=== PATIENT | female | born 1985 | race Two or more races ===

== ENCOUNTER 2019-09-17 10:23 | Emergency (ER) | payer SELFPAY ==
[~2019-09-17] VITALS: Ht 152.4 cm; Wt 58.0 kg
[2019-09-17 10:25] VITALS: BP 149/77
[2019-09-17 11:39] LABS: ALANINE AMINOTRANSFERASE 23 U/L (12-78); ALBUMIN 3.9 G/DL (3.4-5.0); ALBUMIN/GLOBULIN RATIO 1.1 (1.1-1.5); ALKALINE PHOSPHATASE 73 IU/L (46-116); ANION GAP 5 (8-16); ASPARTATE AMINO TRANSFERASE 19 U/L (10-37); BILIRUBIN,TOTAL 0.3 MG/DL (0.1-1.0); BLOOD UREA NITROGEN 9 MG/DL (7-18); BUN/CREATININE RATIO 13.8 (6.6-38.0); CALCIUM 8.7 MG/DL (8.5-10.1); CHLORIDE 107 MMOL/L (99-107); CREATININE 0.65 MG/DL (0.40-0.90); GLUCOSE 77 MG/DL (70-104); POTASSIUM 3.8 MMOL/L (3.5-5.1); SODIUM 142 MMOL/L (135-145); TOTAL CARBON DIOXIDE 29.6 MMOL/L (24-32); TOTAL PROTEIN 7.4 G/DL (6.4-8.2); eGFR > 90 ML/MIN
[2019-09-17 11:40] LABS: EOSINOPHILS # (AUTO) 0.1 X10'3 (0-0.9); EOSINOPHILS % (AUTO) 1.6 % (0-6); HEMATOCRIT 39.7 % (35.0-45.0)
[2019-09-17 11:42] LABS: BASOPHILS % (AUTO) 0.8 % (0-1); HEMOGLOBIN 13.4 g/dl (12.0-16.0); LYMPHOCYTES # (AUTO) 1.3 X10'3 (1.1-4.8); LYMPHOCYTES % (AUTO) 26.9 % (21-51); MEAN CORPUSCULAR HGB CONC 33.7 g/dL (33.0-36.5); MEAN PLATELET VOLUME 10.4 FL (7.4-10.4); MONOCYTES # (AUTO) 0.3 X10'3 (0-0.9); MONOCYTES % (AUTO) 6.5 % (2-12); NEUTROPHILS # (AUTO) 3.2 X10'3 (1.8-7.7); NEUTROPHILS % (AUTO) 64.2 % (42-75); PLATELET COUNT 196 X10'3 (140-440); RED BLOOD COUNT 4.32 X10'6 (4.20-5.60); RED CELL DISTRIBUTION WIDTH 12.8 % (11.5-14.5)
--- NOTE | 2019-09-17 11:49 | NUR ---
ULTRASOUND AT BEDSIDE
[2019-09-17 12:32] LABS: CLARITY,URINE CLEAR (Clear); COLOR,URINE YELLOW (Yellow); GLUCOSE, URINE NEGATIVE (Neg); KETONES,URINE NEGATIVE (Neg); LEUKOCYTE ESTERASE ,URINE SMALL (Neg); NITRITES, URINE NEGATIVE (Neg); OCCULT BLOOD,URINE LARGE (Neg); PROTEIN,URINE NEGATIVE (Neg); UROBILINOGEN,URINE 0.2 E.U/dL (0.2-1.0)
[2019-09-17 12:33] LABS: UA COLLECTION TYPE CLN CATCH MIDSTREAM
[2019-09-17 12:37] LABS: URINE AMPHETAMINE SCREEN NEGATIVE (Neg); URINE BARBITUATE SCREEN NEGATIVE (Neg); URINE BENZODIAZEPINES SCREEN NEGATIVE (Neg); URINE CANNABINOID SCREEN POSITIVE (Neg); URINE COCAINE SCREEN NEGATIVE (Neg); URINE METHADONE SCREEN NEGATIVE (Neg); URINE OPIATE SCREEN NEGATIVE (Neg); URINE PHENCYCLIDINE SCREEN NEGATIVE (Neg)
[2019-09-17 12:41] LABS: SQUAMOUS EPITHELIAL CELL,UR FEW /LPF (FEW)
[2019-09-17 12:42] LABS: BACTERIA,URINE 1+ /HPF (Neg)
== END 2019-09-17 12:59 | disposition home or self-care (01) ==
LOC: ER 10:24
DX: O46.91 Antepartum hemorrhage, unspecified, first trimester (principal); F12.90 Cannabis use, unspecified, uncomplicated; Z3A.01 Less than 8 weeks gestation of pregnancy
CPT/HCPCS: 36415; 76801; 80053; 80305; 81001; 84702; 85025; 86900; 86901; 87088; 99284

== ENCOUNTER 2019-09-19 08:16 | Emergency (ER) | payer SELFPAY ==
[~2019-09-19] VITALS: Ht 152.4 cm; Wt 57.0 kg
[2019-09-19 09:15] VITALS: BP 125/38
== END 2019-09-19 10:04 | disposition home or self-care (01) ==
LOC: ER 08:16
DX: O20.0 Threatened abortion (principal); O99.321 Drug use complicating pregnancy, first trimester; F12.90 Cannabis use, unspecified, uncomplicated; Z3A.01 Less than 8 weeks gestation of pregnancy
CPT/HCPCS: 36415; 84702; 99283

== ENCOUNTER 2020-04-24 09:35 | Emergency (ER) | payer BC ==
[~2020-04-24] VITALS: Ht 152.4 cm; Wt 50.0 kg
[2020-04-24] MEDS ORDERED: acetaminophen 325mg tablet PO ONE (10:45)
[2020-04-24 11:39] LABS: HCG SERUM QL POSITIVE
--- NOTE | 2020-04-24 11:44 | NUR ---
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
[2020-04-24 12:43] LABS: CLARITY,URINE SLIGHTLY CLOUDY (Clear); COLOR,URINE YELLOW (Yellow); GLUCOSE, URINE NEGATIVE (Neg); KETONES,URINE NEGATIVE (Neg); LEUKOCYTE ESTERASE ,URINE NEGATIVE (Neg); NITRITES, URINE NEGATIVE (Neg); OCCULT BLOOD,URINE MODERATE (Neg); PH,URINE 7.5 (4.8-8.0); PROTEIN,URINE NEGATIVE (Neg); UROBILINOGEN,URINE 0.2 E.U/dL (0.2-1.0)
[2020-04-24 12:44] VITALS: BP 127/76
[2020-04-24 12:54] LABS: UA COLLECTION TYPE CLN CATCH MIDSTREAM
[2020-04-24 13:02] LABS: SQUAMOUS EPITHELIAL CELL,UR FEW /LPF (FEW)
[2020-04-24 13:03] LABS: BACTERIA,URINE FEW /HPF (Neg)
[2020-04-24 13:04] LABS: WBC,URINE 0-4 /HPF (0-4)
== END 2020-04-24 12:46 | disposition home or self-care (01) ==
LOC: ER 09:36
DX: O03.4 Incomplete spontaneous abortion without complication (principal); F12.90 Cannabis use, unspecified, uncomplicated
CPT/HCPCS: 36415; 76802; 81001; 84702; 84703; 93976; 99284

== ENCOUNTER 2021-06-14 14:43 | Emergency (ER) | payer BC, OTHER ==
[~2021-06-14] VITALS: Ht 154.9 cm; Wt 52.3 kg
[2021-06-14 15:16] VITALS: BP 147/97
[2021-06-14] MEDS ORDERED: BACI30OI9 TOP (15:21)
== END 2021-06-14 15:26 | disposition home or self-care (01) ==
LOC: ER 14:44
DX: T23.002A Burn of unspecified degree of left hand, unspecified site, initial encounter (principal); T79.9XXA Unspecified early complication of trauma, initial encounter; F12.10 Cannabis abuse, uncomplicated; X77 Intentional self-harm by steam, hot vapors and hot objects; Y93.89 Activity, other specified; Y92.89 Other specified places as the place of occurrence of the external cause; Y99.8 Other external cause status
CPT/HCPCS: 99282

== ENCOUNTER 2024-08-04 07:57 | Emergency (ER) | payer BC ==
[~2024-08-04] VITALS: Ht 154.9 cm; Wt 58.0 kg
[~2024-08-04 07:57] MED LIST: BACI30OI9 TOP
[2024-08-04 09:41] LABS: BASOPHILS % (AUTO) 0.6 % (0-1); EOSINOPHILS # (AUTO) 0.1 X10'3 (0-0.9); EOSINOPHILS % (AUTO) 1.3 % (0-6); HEMATOCRIT 41.7 % (35.0-45.0); LYMPHOCYTES # (AUTO) 1.6 X10'3 (1.1-4.8); LYMPHOCYTES % (AUTO) 27.3 % (21-51); MEAN CORPUSCULAR HEMOGLOBIN 31.1 PG (27.0-31.0); MEAN CORPUSCULAR HGB CONC 33.7 g/dL (33.0-36.5); MEAN CORPUSCULAR VOLUME 92.3 FL (78-98); MEAN PLATELET VOLUME 9.3 FL (7.4-10.4); MONOCYTES # (AUTO) 0.3 X10'3 (0-0.9); MONOCYTES % (AUTO) 5.8 % (2-12); NEUTROPHILS # (AUTO) 3.8 X10'3 (1.8-7.7); PLATELET COUNT 246 X10'3 (140-440); RED BLOOD COUNT 4.52 X10'6 (4.20-5.60); RED CELL DISTRIBUTION WIDTH 13.5 % (11.5-14.5); WHITE BLOOD COUNT 5.9 X10'3 (4.5-11.0)
[2024-08-04] MEDS: ketorolac trometh 30MG/ML vial 30 MG/ML VIAL IM ONE (10:27)
[2024-08-04 10:35] VITALS: BP 145/78; PULSE 68; RESP 16; TEMP 98.4; O2SAT 99
== END 2024-08-04 10:38 | disposition home or self-care (01) ==
LOC: ER 07:57
DX: O03.9 Complete or unspecified spontaneous abortion without complication (principal); F12.90 Cannabis use, unspecified, uncomplicated; R10.2 Pelvic and perineal pain
CPT/HCPCS: 36415; 76801; 84702; 85025; 86900; 86901; 96372; 99285; J1885

== ENCOUNTER 2025-07-11 14:44 | Emergency (ER) | payer BC ==
[~2025-07-11] VITALS: Ht 152.4 cm; Wt 58.3 kg
[2025-07-11 14:46] VITALS: BP 153/105; PULSE 86; O2SAT 98
--- NOTE | 2025-07-11 15:01 | Physician Documentation ---
History of Present Illness ~ Chief Complaint: Headache Stated Complaint: HEADACHE Time Seen by MD: 15:00 Primary Medical Doctor: N/A HPI Patient is a very pleasant 39-year-old female that presents to the emergency department for evaluation of significant headache for 24 hours. Patient reports she has a history of migraines. Patient reports he does not recall them being this severe in the past. Patient reports she does not have any visual changes at this time no nausea and vomiting but reports significant left-sided headache that has not responded to Tylenol ibuprofen or rest. Patient denies numbness or tingling visual changes nausea vomiting or any other symptoms at this time. Medication Reconciliation Allergies: Coded Allergies: No Known Allergies (Unverified , 07/11/25) Scheduled Bacitracin Zinc (Antibiotic), 1 APPLIC TOP Q4H Past Medical History Past Medical History: No Pertinent History Past Surgical History: no surgical history Other Past Family History: non-contributory Alcohol Use: Rarely Drug Use: marijuana Review of Systems ROS As stated above in the HPI, otherwise all systems are reviewed and negative. Physical Exam Vital Signs: Temperature: 98.9, Source: Temporal, Heart Rate: 86, Respiratory Rate: 16, BP: 153/105, Pulse Oximetry: 98, Weight: 58.300 Oxygen Flow Rate: 0 Physical Exam VITALS: Reviewed and as above. GENERAL: Alert, mild distress present as patient reports significant headache. HEENT: Normocephalic, atraumatic, PERRL, EOMI, dry mucosa, no erythema RESPIRATORY: normal breath sounds, no respiratory distress. CHEST: No accessory muscle use, no retractions CV: Regular rate, rhythm, no edema, no murmur MUSCULOSKELETAL No deformities, no edema, no neck pain with flexion SKIN: Warm and dry, no rash NEURO: Oriented x4, No motor or sensory deficit PSYCH: Normal mood and affect, no agitation Progress Results/Orders Results/Orders Orders - SUNI GAVIRIAP Ct Head (07/11/25 17:45) * Iv Access / Saline Lock * (07/11/25 18:38) Acetaminophen 1,000mg/100ml Iv (Ofirmev (07/11/25 20:00) Completed Orders - SUNI GAVIRIA [employer] Cbc/Diff (07/11/25 17:38) CMP (07/11/25 17:38) Ct Head (07/11/25 17:45) Ketorolac Trometh 15mg/Ml Vial (Toradol (07/11/25 18:40) Diphenhydramine Inj (Benadryl Inj.) (07/11/25 18:40) Vital Signs 07/11/25 14:46 Temp 98.9 Pulse 86 Resp 16 B/P (MAP) 153/105 Pulse Ox 98 O2 Flow Rate 0 Laboratory Tests Test 07/11/25 18:03 White Blood Count 6.2 Red Blood Count 4.77 Hemoglobin 14.5 Hematocrit 42.8 Mean Corpuscular Volume 89.8 Mean Corpuscular Hemoglobin 30.3 Mean Corpuscular Hemoglobin Concent 33.8 Red Cell Distribution Width 13.1 Platelet Count 238 Mean Platelet Volume 9.0 Neutrophils (%) (Auto) 68.8 Lymphocytes (%) (Auto) 24.4 Monocytes (%) (Auto) 5.5 Eosinophils (%) (Auto) 0.4 Basophils (%) (Auto) 0.9 Neutrophils # (Auto) 4.3 Lymphocytes # (Auto) 1.5 Monocytes # (Auto) 0.3 Eosinophils # (Auto) 0.0 Basophils # (Auto) 0.1 CBC Comment Sodium Level 139 Potassium Level 3.7 Chloride Level 105 Carbon Dioxide Level 24.1 Anion Gap 10 Blood Urea Nitrogen 13 Creatinine 0.71 Estimated GFR/1.73 m2 > 90 BUN/Creatinine Ratio 18.3 Glucose Level 77 Calcium Level 9.0 Total Bilirubin 0.6 Aspartate Amino Transf (AST/SGOT) 19 Alanine Aminotransferase (ALT/SGPT) 17 Alkaline Phosphatase 79 Total Protein 8.0 Albumin 4.1 Globulin 3.9 Albumin/Globulin Ratio 1.1 Chemistry Comments Medical Decision Making Additional information obtaine: other Findings Chief Complaint: Severe headache lasting 24 hours History of Present Illness: 39-year-old female with history of migraines presented to the emergency department with a significant left-sided headache lasting 24 hours. Patient reports this headache is more severe than her typical migraines. She denies visual changes, nausea, vomiting, numbness, tingling, or other neurological symptoms. [id number] acetaminophen and ibuprofen provided no relief. Emergency Department Course: Diagnostic Evaluation: Given the patient's presentation with a more severe headache than usual, appropriate diagnostic workup was performed to exclude secondary headache disorders. Laboratory diagnostics and non-contrast CT of the head were obtained and demonstrated no abnormalities or concerning findings. This evaluation was appropriate given the change in headache pattern from her baseline migraines. Treatment: Patient received evidence-based acute migraine therapy in the ED including: Intravenous normal saline 1 liter for hydration Intravenous ketorolac (NSAID therapy, which should be offered for acute migraine in the ED) Intravenous acetaminophen Intravenous diphenhydramine (for potential sedation and antihistamine effects) Patient demonstrated good improvement in headache severity following this treatment regimen. Medical Decision-Making: Differential Diagnosis: The differential diagnosis for this patient presenting with severe headache included: Acute migraine headache (most likely given history of migraines, unilateral location, [id number] intensity, and response to migraine-specific therapy) Meningitis - Considered but currently no signs of meningitis. Patient lacks fever, nuchal rigidity, altered mental status, or other meningeal signs. Normal laboratory values and absence of systemic signs of infection make bacterial meningitis unlikely. Subarachnoid hemorrhage - Considered given severity of headache, though patient denies thunderclap onset (maximal intensity within [address] head effectively excludes this diagnosis when obtained acutely. Intracranial mass lesion or brain abscess - Excluded by normal CT imaging without mass effect, edema, or abnormal enhancement Tension-type headache - Less likely given unilateral location and severity, though can coexist with migraine Assessment: Acute migraine headache, more severe than patient's typical migraine pattern, with reassuring diagnostic workup excluding secondary causes including meningitis. Differential Dx:Considerations: Include: HERNANDEZ-Cluster, HERNANDEZ-Migraine, HERNANDEZ- Hypertensive, HERNANDEZ-Muscular contraction, HERNANDEZ-Post lumbar puncture, Carbon monoxide toxicity, Close head injuyr, CVA, Fever induced, Hemorrhage-Epidural, Hemorr olimpia-Intracerebral, Hemorrhage-Subarachnoid, Hemorrhage-Subdural, Mass lesion, Meningitis, Post-traumtic, Pseudotumor cerebri, Sinusitis, Temporal arteritis, Trigeminal neuralgia, Other Departure Disposition: 01 HOME / SELF CARE / HOMELESS Impression: Primary Impression: Headache Additional Impression: Migraine Condition: Stable Discharge Instructions: Headache, Migraine Headache Referrals: NO PRIMARY CARE PROVIDER (PCP) Education Educated: Patient Educated regarding: diagnosis, treatment, need for follow up SUNI GAVIRIA Jul 11, 2025 15:01
[2025-07-11 18:10] LABS: MEAN PLATELET VOLUME 9.0 FL (7.4-10.4); RED CELL DISTRIBUTION WIDTH 13.1 % (11.5-14.5)
--- NOTE | 2025-07-11 18:13 | RADIOLOGY REPORT ---
COMPUTERIZED TOMOGRAPHY OF THE HEAD WITHOUT CONTRAST REASON FOR STUDY: Headache, pain COMPARISON: None TECHNIQUE: Helical tomographic scans were obtained through the brain. 2-D coronal and sagittal reformatted images are provided. Radiation optimization: All CT scans at this facility use at least one of these dose optimization techniques: Automated exposure control mA and/or kV adjustment per patient size (includes targeted exams where dose is matched to clinical indication) or iterative reconstruction. RADIATION DOSE: CTDI: 57 mGy DLP: 933 mGy-cm FINDINGS: No suspicious intracranial hyperdensity to suggest acute blood. There is no mass effect nor midline shift. There is no hydrocephalus. The suprasellar cistern is intact. The calvarium is intact. The visualized mastoid air cells and paranasal sinuses are clear. IMPRESSION: No acute intracranial abnormality.
[2025-07-11 18:28] LABS: CREATININE 0.71 MG/DL (0.40-0.90); TOTAL CARBON DIOXIDE 24.1 MMOL/L (24-32); eCRCL 78 ML/MIN; eGFR > 90 ML/MIN
[2025-07-11 19:52] VITALS: RESP 16
[2025-07-11] MEDS: acetaminophen 1,000mg/100ml IV 100 ML IV SCH (19:52)
[2025-07-11] MEDS: ketorolac trometh 15mg/ml vial 15 MG/ML ML IM ONE (19:52)
[2025-07-11 20:39] VITALS: TEMP 98.9
== END 2025-07-11 20:54 | disposition home or self-care (01) ==
LOC: ER 14:44
DX: G43.909 Migraine, unspecified, not intractable, without status migrainosus (principal)
CPT/HCPCS: 36415; 70450; 80053; 85025; 96365; 96372; 96375; 99285; J0131; J1200; J1885; J7030